=== PATIENT | female | born 1990 | race Caucasian/White ===

== ENCOUNTER 2019-04-16 11:09 | Emergency (ER) | payer MEDICAID ==
[2019-04-16] MEDS ORDERED: Sodium Chloride 0.9% 1,000 ML IV ONE (11:41)
[2019-04-16] MEDS ORDERED: Ondansetron 4 MG/2 ML SDV IVPUSH ONE (11:41)
[2019-04-16] MEDS ORDERED: diphenhydrAMINE 50 MG/ML SDV IVPUSH ONE (11:41)
[2019-04-16] MEDS ORDERED: Ketorolac 30 MG/ML SDV IVPUSH ONE (11:41)
[2019-04-16] MEDS ORDERED: Metoclopramide 10 MG/2 ML SDV IV ONE (11:41)
--- NOTE | 2019-04-16 11:50 | EDM.PDOC ---
ED HPI GENERAL MEDICAL PROBLEM - General Chief Complaint: Headache Stated Complaint: HEAD ACHE Time Seen by Provider: 04/16/19 11:37 Source of Information: Reports: Patient History Limitations: Reports: No Limitations - History of Present Illness INITIAL COMMENTS - FREE TEXT/NARRATIVE: HISTORY AND PHYSICAL: History of present illness: Patient is a 28 old female presents to the ED today with concern of headache that it started yesterday. Patient states her headache is a 9 out of 10 and she does not have a history of headaches and this is unusual for her. Patient states is behind her left eye and extends back around her head. Patient states she's had some nausea and 2 episodes of vomiting since onset of headache. Patient states she has taken a total of 400 mg of ibuprofen today and yesterday without relief of symptoms. Patient denies any head injury or trauma. Patient denies any health history. Patient has a Nexplanon implant for control. Patient denies fever, chills, chest pain, shortness of breath, or cough. Denies neck stiff ness, change in vision, syncope, or near syncope. Denies nausea, vomiting, abdominal pain, diarrhea, constipation, or dysuria. Has not noted any blood in urine or stool. Patient has been eating and drinking appropriately. Review of systems: As per history of present illness and below otherwise all systems reviewed and negative. Past medical history: As per history of present illness and as reviewed below otherwise noncontributory. Surgical history: As per history of present illness and as reviewed below otherwise noncontributory. Social history: See social history for further information Family history: As per history of present illness and as reviewed below otherwise noncontributory. Physical exam: General: Patient is alert, oriented, and in no acute distress. Patient sitting comfortably on exam table. HEENT: Atraumatic, normocephalic, pupils equal and reactive bilaterally, negative for conjunctival pallor or scleral icterus, mucous membranes moist, TMs normal bilaterally, throat clear, neck supple, nontender, trachea midline. No drooling or trismus noted. No meningeal signs. No hot potato voice noted. Lungs: Clear to auscultation, breath sounds equal bilaterally, chest nontender. Heart: S1S2, regular rate and rhythm without overt murmur Abdomen: Soft, nondistended, nontender. Negative for masses or hepatosplenomegaly. Negative for costovertebral tenderness. Pelvis: Stable nontender. Genitourinary: Deferred. Rectal: Deferred. Skin: Intact, warm, dry. No lesions or rashes noted. Nexplanon implant palpated in left biceps area. Extremities/Musculoskeletal : Atraumatic, negative for cords or calf pain. Neurovascular unremarkable.Negative Kernig and Brudzinski sign. Neuro: Awake, alert, oriented. Cranial nerves II through XII unremarkable. Cerebellum unremarkable. Motor and sensory unremarkable throughout. Exam nonfocal. Notes: Patient does note significant improvement of her headache with therapeutics today. Discussed the importance for follow-up with primary care provider. Voices understanding and is agreeable to plan of care. Denies any further questions or concerns at this time. Diagnostics: CBC CBC, CMP, UA, head CT Therapeutics: Saline, Toradol, Zofran, Reglan, Benadryl Prescription: None Impression: Headache, unspecified Plan: 1. Encourage small but frequent sips of fluid to prevent dehydration. 2. Follow-up with a primary care provider as discussed. You can alternate ibuprofen and Tylenol as directed for pain and discomfort. 3. Return to the ED as needed and as discussed. Definitive disposition and diagnosis as appropriate pending reevaluation and review of above. Left head Pain Score (Numeric/FACES): 9 - Related Data Allergies Allergy/AdvReac Type Severity Reaction Status Date / Time No Known Allergies Allergy Verified 04/16/19 11:18 Home Meds: Home Meds . 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: Musculoskeletal History: Reports: None Neurological History: Reports: None Psychiatric History: Reports: None Endocrine/Metabolic History: Reports: None Hematologic History: Reports: None Immunologic History: Reports: None Oncologic (Cancer) History: Reports: None Dermatologic History: Reports: None - Infectious Disease History Infectious Disease History: Reports: Other (See Below) Other Infectious Disease History: 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 - Past Surgical History Head Surgeries/Procedures: Reports: None HEENT Surgical History: Reports: None Cardiovascular Surgical History: Reports: None Respiratory Surgical History: Reports: None GI Surgical History: Reports: None Female Surgical History: Reports: None Endocrine Surgical History: Reports: None Neurological Surgical History: Reports: None Musculoskeletal Surgical History: Reports: None Oncologic Surgical History: Reports: None Dermatological Surgical History: Reports: None Social & Family History - Family History Family Medical History: Noncontributory - Tobacco Use Smoking Status *Q: Current Every Day Smoker Years of Tobacco use: 12 Packs/Tins Daily: 0.5 - Caffeine Use Caffeine Use: Reports: Soda - Recreational Drug Use Recreational Drug Use: Yes Recreational Drug Type: Reports: Marijuana/Hashish Recreational Drug Use Frequency: Daily ED ROS GENERAL - Review of Systems Review Of Systems: ROS reveals no pertinent complaints other than HPI. ED EXAM, GENERAL - Physical Exam Exam: See Below (See dictation) Course - Vital Signs Last Recorded V/S: Last Vital Signs Temp 36.3 C 04/16/19 11:17 Pulse 91 04/16/19 11:17 Resp 18 04/16/19 11:17 BP 150/101 H 04/16/19 11:17 Pulse Ox 96 04/16/19 11:17 - Orders/Labs/Meds Labs: Laboratory Tests 04/16/19 04/16/19 04/16/19 Range/Units 11:30 11:30 11:45 WBC 9.71 (4.0-11.0) K/uL RBC 4.95 (4.30-5.90) M/uL Hgb 14.5 (12.0-16.0) g/dL Hct 42.7 (36.0-46.0) % MCV 86.3 (80.0-98.0) fL MCH 29.3 (27.0-32.0) pg MCHC 34.0 (31.0-37.0) g/dL RDW Std Deviation 43.3 (28.0-62.0) fl RDW Coeff of Batool 14 (11.0-15.0) % Plt Count 252 (150-400) K/uL MPV 10.00 (7.40-12.00) fL Neut % (Auto) 50.3 (48.0-80.0) % Lymph % (Auto) 44.4 H (16.0-40.0) % [place] % (Auto) 3.8 (0.0-15.0) % Eos % (Auto) 1.3 (0.0-7.0) % Baso % (Auto) 0.2 (0.0-1.5) % Neut # (Auto) 4.9 (1.4-5.7) K/uL Lymph # (Auto) 4.3 H (0.6-2.4) K/uL [place] # (Auto) 0.4 (0.0-0.8) K/uL Eos # (Auto) 0.1 (0.0-0.7) K/uL Baso # (Auto) 0.0 (0.0-0.1) K/uL Nucleated RBC % 0.0 /100WBC Nucleated RBCs # 0 K/uL Sodium 145 (136-145) mmol/L Potassium 4.0 (3.5-5.1) mmol/L Chloride 108 H (98-107) mmol/L Carbon Dioxide 25.6 (21.0-32.0) mmol/L BUN 11 (7.0-18.0) mg/dL Creatinine 0.7 (0.6-1.0) mg/dL Est Cr Clr Drug Dosing 109.59 mL/min Estimated GFR (MDRD) > 60.0 ml/min Glucose 92 (74-106) mg/dL Calcium 9.0 (8.5-10.1) mg/dL Total Bilirubin 0.2 (0.2-1.0) mg/dL AST 11 L (15-37) IU/L ALT 15 (14-63) IU/L Alkaline Phosphatase 70 (46-116) U/L Total Protein 7.0 (6.4-8.2) g/dL Albumin 3.5 (3.4-5.0) g/dL Globulin 3.5 (2.6-4.0) g/dL Albumin/Globulin Ratio 1.0 (0.9-1.6) Urine Color YELLOW Urine Appearance CLEAR Urine pH 6.5 (5.0-8.0) Ur Specific [place] 1.015 (1.001-1.035) Urine Protein NEGATIVE (NEGATIVE) mg/dL Urine Glucose (UA) NEGATIVE (NEGATIVE) mg/dL Urine Ketones NEGATIVE (NEGATIVE) mg/dL Urine Occult Blood SMALL H (NEGATIVE) Urine Nitrite NEGATIVE (NEGATIVE) Urine Bilirubin NEGATIVE (NEGATIVE) Urine Urobilinogen 0.2 (<2.0) EU/dL Ur Leukocyte Esterase NEGATIVE (NEGATIVE) Urine RBC 0-1 (0-2/HPF) Urine WBC 0-1 (0-5/HPF) Ur Epithelial Cells RARE (NONE-FEW) Urine Bacteria RARE (NEGATIVE) Meds: Medications Discontinued Medications Generic Name Dose Route Start Last Admin Trade Name Linda PRN Reason Stop Dose Admin Diphenhydramine HCl 25 mg 04/16/19 11:41 04/16/19 12:04 Benadryl IVPUSH 04/16/19 11:42 25 mg ONETIME ONE Administration Sodium Chloride 1,000 mls @ 999 mls/hr 04/16/19 11:41 04/16/19 12:02 Normal Saline IV 04/16/19 12:41 999 mls/hr STAT ONE Administration Ketorolac Tromethamine 30 mg 04/16/19 11:41 04/16/19 12:03 Toradol IVPUSH 04/16/19 11:42 30 mg ONETIME ONE Administration Metoclopramide HCl 10 mg 04/16/19 11:41 04/16/19 12:04 Reglan IV 04/16/19 11:42 10 mg ONETIME ONE Administration Ondansetron HCl 4 mg 04/16/19 11:41 04/16/19 12:03 Zofran IVPUSH 04/16/19 11:42 4 mg ONETIME ONE Administration Departure - Departure Time of Disposition: 13:08 Disposition: Home, Self-Care 01 Clinical Impression: Headache Qualifiers: Headache type: unspecified Headache chronicity pattern: acute headache Intractability: not intractable Qualified Code(s): R51 - Headache - Discharge Information Referrals: PCP,Unknown [Primary Care Provider] - Forms: ED Department Discharge Additional Instructions: The following information is given to patients seen in the emergency department who are being discharged to home. This information is to outline your options for follow-up care. We provide all patients seen in our emergency department with a follow-up referral. The need for follow-up, as well as the timing and circumstances, are variable depending upon the specifics of your emergency department visit. If you don't have a primary care physician on staff, we will provide you with a referral. We always advise you to contact your personal physician following an emergency department visit to inform them of the circumstance of the visit and for follow-up with them and/or the need for any referrals to a consulting specialist. The emergency department will also refer you to a specialist when appropriate. This referral assures that you have the opportunity for follow-up care with a specialist. All of these measure are taken in an effort to provide you with optimal care, which includes your follow-up. Under all circumstances we always encourage you to contact your private physician who remains a resource for coordinating your care. When calling for follow-up care, please make the office aware that this follow-up is from your recent emergency room visit. If for any reason you are refused follow-up, please contact the [facility] Emergency Department at and asked to speak to the emergency department charge nurse. [facility] [address] [place] [id number] [facility] [address] [place] [id number] 1. Encourage small but frequent sips of fluid to prevent dehydration. 2. Follow-up with a primary care provider as discussed. You can alternate ibuprofen and Tylenol as directed for pain and discomfort. 3. Return to the ED as needed and as discussed.
[2019-04-16 11:59] LABS: CHLORIDE,CL 108 mmol/L (98-107); SODIUM,NA 145 mmol/L (136-145)
--- NOTE | 2019-04-16 13:06 | CT ---
INDICATION: Headache. Comparison: None. TECHNIQUE: CT head without intravenous contrast; coronal and sagittal reformats. FINDINGS: No intracranial hemorrhage. No mass lesions. No evidence of shift of the midline structures. The calvarium is unremarkable. The ventricular system, the subarachnoid cisterns and the cerebral sulci are unremarkable. IMPRESSION: Negative unenhanced head CT. Please note that all CT scans at this facility use dose modulation, iterative reconstruction, and/or weight-based dosing when appropriate to reduce radiation dose to as low as reasonably achievable. Dictated by Andrew Jacobo MD @ Apr 16 2019 12:57PM Signed by Dr. Andrew Jacobo @ Apr 16 2019 1:04PM
== END 2019-04-16 13:20 | disposition home or self-care (01) ==
LOC: MW.ED 11:09
DX: R51 Headache (principal); F17.210 Nicotine dependence, cigarettes, uncomplicated
CPT/HCPCS: 36415; 70450; 80053; 81001; 85025; 96361; 96374; 96375; 99284; J1200; J1885; J2405; J2765; J7040

== ENCOUNTER 2019-08-26 08:21 | Emergency (ER) | payer MEDICAID ==
--- NOTE | 2019-08-26 08:37 | EDM.PDOC ---
ED HPI GENERAL MEDICAL PROBLEM - General Chief Complaint: Gastrointestinal Problem Stated Complaint: BLOOD IN VOMIT Time Seen by Provider: 08/26/19 08:36 Source of Information: Reports: Patient History Limitations: Reports: No Limitations - History of Present Illness INITIAL COMMENTS - FREE TEXT/NARRATIVE: Patient has a 29-year-old female who is complaining of epigastric abdominal pain and vomiting in the morning that is been going on for several months. Patient has taken a home test which is negative and states her symptoms are worse in the morning. She has been vomiting every day once or twice in the morning and the rest of the day is fine. She denies any bloody or tarry looking stools. Patient noted there is a small amount possibly tablespoon worth of blood in her emesis today. She has not had similar symptoms before and denies any coffee-ground type emesis. She has not followed up with anybody to work-up her abdominal pain symptoms. And is not having any pain currently and usually does not have pain with above symptoms. She denies any fever or shaking chills or any dysuria. Drink alcohol on a regular basis. Onset: Today Location: Reports: Abdomen Severity: Mild Improves with: Reports: None Worsens with: Reports: None Associated Symptoms: Reports: No Other Symptoms Middle Abdomen Pain Score (Numeric/FACES): 7 - Related Data Allergies Allergy/AdvReac Type Severity Reaction Status Date / Time No Known Allergies Allergy Verified 08/26/19 08:36 Home Meds: Home Meds . 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: Musculoskeletal History: Reports: None Neurological History: Reports: None Psychiatric History: Reports: None Endocrine/Metabolic History: Reports: None Hematologic History: Reports: None Immunologic History: Reports: None Oncologic (Cancer) History: Reports: None Dermatologic History: Reports: None - Infectious Disease History Infectious Disease History: Reports: Other (See Below) Other Infectious Disease History: 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 - Past Surgical History Head Surgeries/Procedures: Reports: None HEENT Surgical History: Reports: None Cardiovascular Surgical History: Reports: None Respiratory Surgical History: Reports: None GI Surgical History: Reports: None Female Surgical History: Reports: None Endocrine Surgical History: Reports: None Neurological Surgical History: Reports: None Musculoskeletal Surgical History: Reports: None Oncologic Surgical History: Reports: None Dermatological Surgical History: Reports: None Social & Family History - Family History Family Medical History: Noncontributory - Caffeine Use Caffeine Use: Reports: Soda ED ROS GENERAL - Review of Systems Review Of Systems: See Below Constitutional: Reports: No Symptoms. Denies: Decreased Appetite Respiratory: Reports: No Symptoms Cardiovascular: Reports: No Symptoms Endocrine: Reports: No Symptoms GI/Abdominal: Reports: Abdominal Pain, Hematochezia. Denies: Anorexia, Bloody Stool, Melena, Mucous in Stool : Reports: No Symptoms Musculoskeletal: Reports: No Symptoms Skin: Reports: No Symptoms Neurological: Reports: No Symptoms Psychiatric: Reports: No Symptoms ED EXAM, GI/ABD - Physical Exam Exam: See Below Exam Limited By: No Limitations General Appearance: Alert, No Apparent Distress Head: Atraumatic, Normocephalic Neck: Normal Inspection Respiratory/Chest: No Respiratory Distress, Lungs Clear GI/Abdominal Exam: Normal Bowel Sounds, No Distention, Tender Back Exam: Normal Inspection Extremities: Normal Inspection Neurological: Alert Psychiatric: Normal Affect Course - Vital Signs Last Recorded V/S: Last Vital Signs Temp 36.2 C 08/26/19 08:33 Pulse 90 08/26/19 08:33 Resp 16 08/26/19 08:33 BP 186/68 H 08/26/19 08:33 Pulse Ox 98 08/26/19 08:33 - Orders/Labs/Meds Labs: Laboratory Tests 08/26/19 08/26/19 08/26/19 Range/Units 08:55 08:55 09:08 WBC 10.16 (4.0-11.0) K/uL RBC 4.94 (4.30-5.90) M/uL Hgb 14.4 (12.0-16.0) g/dL Hct 42.6 (36.0-46.0) % MCV 86.2 (80.0-98.0) fL MCH 29.1 (27.0-32.0) pg MCHC 33.8 (31.0-37.0) g/dL RDW Std Deviation 43.6 (28.0-62.0) fl RDW Coeff of Batool 14 (11.0-15.0) % Plt Count 249 (150-400) K/uL MPV 9.90 (7.40-12.00) fL Neut % (Auto) 58.8 (48.0-80.0) % Lymph % (Auto) 35.5 (16.0-40.0) % [place] % (Auto) 3.9 (0.0-15.0) % Eos % (Auto) 1.7 (0.0-7.0) % Baso % (Auto) 0.1 (0.0-1.5) % Neut # (Auto) 6.0 H (1.4-5.7) K/uL Lymph # (Auto) 3.6 H (0.6-2.4) K/uL [place] # (Auto) 0.4 (0.0-0.8) K/uL Eos # (Auto) 0.2 (0.0-0.7) K/uL Baso # (Auto) 0.0 (0.0-0.1) K/uL Nucleated RBC % 0.0 /100WBC Nucleated RBCs # 0 K/uL Sodium 141 (136-145) mmol/L Potassium 4.4 (3.5-5.1) mmol/L Chloride 107 (98-107) mmol/L Carbon Dioxide 26.9 (21.0-32.0) mmol/L BUN 13 (7.0-18.0) mg/dL Creatinine 0.8 (0.6-1.0) mg/dL Est Cr Clr Drug Dosing 95.05 mL/min Estimated GFR (MDRD) > 60.0 ml/min Glucose 94 (74-106) mg/dL Calcium 8.6 (8.5-10.1) mg/dL Total Bilirubin 0.2 (0.2-1.0) mg/dL AST 11 L (15-37) IU/L ALT 18 (14-63) IU/L Alkaline Phosphatase 74 (46-116) U/L Total Protein 7.1 (6.4-8.2) g/dL Albumin 3.8 (3.4-5.0) g/dL Globulin 3.3 (2.6-4.0) g/dL Albumin/Globulin Ratio 1.2 (0.9-1.6) Lipase 92 (73-393) U/L Urine HCG, Qual NEGATIVE (NEGATIVE) Meds: Medications Discontinued Medications Generic Name Dose Route Start Last Admin Trade Name Linda PRN Reason Stop Dose Admin Famotidine 20 mg 08/26/19 08:45 08/26/19 08:57 Pepcid PO 08/26/19 08:46 20 mg ONETIME ONE Administration - Re-Assessments/Exams Free Text/Narrative Re-Assessment/Exam: 08/26/19 10:08 Patient's lab work is normal. I have reassured her I am not alarmed by her hematochezia since it is a very small amount. I am recommending she follow-up with general surgeon for possible EGD. Recommend a low-fat diet with small meals only and [id number] acid blocking medicine and to stay away from alcohol until she is cleared by her PCP or general surgeon. She can return to emergency department if bleeding increases or she is feeling worse. She is also stay away from any NSAID Departure - Departure Time of Disposition: 10:09 Disposition: Home, Self-Care 01 Condition: Good Clinical Impression: Peptic ulcer - Discharge Information Instructions: Peptic Ulcer, [id number], Nausea and Vomiting, Adult, Easy-to- Read Referrals: PCP,None [Primary Care Provider] - Forms: ED Department Discharge Additional Instructions: The following information is given to patients seen in the emergency department who are being discharged to home. This information is to outline your options for follow-up care. We provide all patients seen in our emergency department with a follow-up referral. The need for follow-up, as well as the timing and circumstances, are variable depending upon the specifics of your emergency department visit. If you don't have a primary care physician on staff, we will provide you with a referral. We always advise you to contact your personal physician following an emergency department visit to inform them of the circumstance of the visit and for follow-up with them and/or the need for any referrals to a consulting specialist. The emergency department will also refer you to a specialist when appropriate. This referral assures that you have the opportunity for follow-up care with a specialist. All of these measure are taken in an effort to provide you with optimal care, which includes your follow-up. Under all circumstances we always encourage you to contact your private physician who remains a resource for coordinating your care. When calling for follow-up care, please make the office aware that this follow-up is from your recent emergency room visit. If for any reason you are refused follow-up, please contact the [facility] Emergency Department at and asked to speak to the emergency department charge nurse. Care Plan Goals: Low-fat diet with small meals. Avoid NSAIDs or alcohol. Follow-up with general surgeon for possible upper scope. Return to emergency department if worse. [id number] Prilosec for the next 4 weeks. Zofran if needed. Sepsis Event Note - Evaluation Sepsis Screening Result: No Definite Risk - Focused Exam Vital Signs: Vital Signs Temp Pulse Resp BP Pulse Ox 08/26/19 08:33 36.2 C 90 16 186/68 H 98 Date Exam was Performed: 08/26/19 Time Exam was Performed: 09:58
[2019-08-26] MEDS ORDERED: Famotidine 20 MG Tab PO ONE (08:45)
[2019-08-26 09:33] LABS: BLOOD UREA NITROGEN,BUN 13 mg/dL (7.0-18.0); CARBON DIOXIDE,CO2 26.9 mmol/L (21.0-32.0); CHLORIDE,CL 107 mmol/L (98-107); GLUCOSE RANDOM 94 mg/dL (74-106); LIPASE 92 U/L (73-393); POTASSIUM,K 4.4 mmol/L (3.5-5.1); SODIUM,NA 141 mmol/L (136-145)
== END 2019-08-26 10:23 | disposition home or self-care (01) ==
LOC: MW.ED 08:21
DX: K27.9 Peptic ulcer, site unspecified, unspecified as acute or chronic, without hemorrhage or perforation (principal)
CPT/HCPCS: 36415; 80053; 81025; 83690; 85025; 99284; A9270

== ENCOUNTER 2019-09-08 06:31 | Day surgery (SDC) | payer MEDICAID ==
[~2019-09-08 06:31] MED LIST: Lactated Ringers 1,000 ML IV SCH
[2019-09-08] MEDS ORDERED: Ondansetron 4 MG/2 ML SDV ONE (07:18)
[2019-09-08] MEDS ORDERED: fentaNYL 100 MCG/2 ML SDV ONE (07:19)
[2019-09-08] MEDS ORDERED: Propofol 200 MG/20 ML SDV ONE (07:19)
[2019-09-08] MEDS ORDERED: Midazolam 1 MG/ML 2 ML SDV ONE (07:20)
--- NOTE | 2019-09-08 07:29 | PCM.PREANE ---
Preanesthetic Assessment - Anesthesia/Transfusion/Family Hx Anesthesia History: Prior Anesthesia Without Reaction Family History of Anesthesia Reaction: No Transfusion History: No Prior Transfusion(s) - Review of Systems General: No Symptoms Pulmonary: No Symptoms Cardiovascular: No Symptoms Neurological: No Symptoms Other: Reports: None - Physical Assessment NPO Status Date: 09/07/19 Vital Signs: Last Vital Signs Temp 97.9 F 09/08/19 07:16 Pulse 79 09/08/19 07:16 Resp 16 09/08/19 07:16 BP 136/84 09/08/19 07:16 Pulse Ox 97 09/08/19 07:16 Height: 5 ft 5 in Weight: 109.769 kg ASA Class: 2 Mental Status: Alert & Oriented x3 Airway Class: Mallampati = 2 Dentition: Reports: Normal Dentition ROM/Head Extension: Full Lungs: Clear to Auscultation, Normal Respiratory Effort Cardiovascular: Regular Rate, Regular Rhythm - Lab Values: Laboratory Last Values Urine HCG, Qual NEGATIVE (NEGATIVE) 09/08/19 06:45 - Allergies Allergies/Adverse Reactions: Allergies Allergy/AdvReac Type Severity Reaction Status Date / Time No Known Allergies Allergy Verified 09/03/19 11:39 - Blood Blood Available: No - Anesthesia Plan Pre-Op Medication Ordered: None - Acknowledgements Anesthesia Type Planned: General Anesthesia Pt an Appropriate Candidate for the Planned Anesthesia: Yes Alternatives and Risks of Anesthesia Discussed w Pt/Guardian: Yes Pt/Guardian Understands and Agrees with Anesthesia Plan: Yes Additional Comments: anes prob list: htn, smoker, BMI=40 PLAN: tiva PreAnesthesia Questionnaire HEENT History: Reports: Other (See Below) Other HEENT History: wears glasses Cardiovascular History: Reports: None Respiratory History: Reports: None Gastrointestinal History: Reports: GERD, GI Bleed Genitourinary History: Reports: Renal Calculus Other Genitourinary History: passed kidney stone 1 year ago [employer]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: Musculoskeletal History: Reports: Fracture Other Musculoskeletal History: hx of fx arm Neurological History: Reports: Migraines Other Neuro History: hx of chronic migraines- no medications Psychiatric History: Reports: None Endocrine/Metabolic History: Reports: Obesity/BMI 30+ Hematologic History: Reports: None Immunologic History: Reports: None Oncologic (Cancer) History: Reports: None Dermatologic History: Reports: None - Infectious Disease History Infectious Disease History: Reports: Other (See Below) Other Infectious Disease History: 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 [No Known Home Meds] 09/03/19 [History] - CURRENT (IN HOUSE) MEDS Current Meds: Current Medications Lactated Ringer's (Ringers, Lactated) 1,000 mls @ 125 mls/hr IV ASDIRECTED KELLY Last Admin: 09/08/19 07:19 Dose: 125 mls/hr Discontinued Medications Fentanyl (Sublimaze) Confirm Administered Dose 100 mcg .ROUTE .STK-MED ONE Stop: 09/08/19 07:20 Lidocaine HCl (Xylocaine-Mpf 1%) Confirm Administered Dose 10 ml .ROUTE .STK- MED ONE Stop: 09/08/19 07:19 Midazolam HCl (Versed 1 Mg/Ml) Confirm Administered Dose 2 mg .ROUTE .STK-MED ONE Stop: 09/08/19 07:21 Ondansetron HCl (Zofran) Confirm Administered Dose 4 mg .ROUTE .STK-MED ONE Stop: 09/08/19 07:19 Propofol (Diprivan 20 Ml) Confirm Administered Dose 400 mg .ROUTE .STK-MED ONE Stop: 09/08/19 07:20
--- NOTE | 2019-09-08 08:33 | PCM.POSTAN ---
POST ANESTHESIA ASSESSMENT - MENTAL STATUS Mental Status: Alert - VITAL SIGNS Vital Signs: Last Vital Signs Temp 36.6 C 09/08/19 07:16 Pulse 79 09/08/19 07:16 Resp 16 09/08/19 07:16 BP 136/84 09/08/19 07:16 Pulse Ox 97 09/08/19 07:16 - RESPIRATORY Respiratory Status: Respiratory Rate WNL - CARDIOVASCULAR CV Status: Pulse Rate WNL - GASTROINTESTINAL GI Status: No Symptoms - PAIN Pain Score: 1 (Cramps) - POST OP HYDRATION Hydration Status: Adequate & Stable - OBSERVATIONS Free Text/Narrative:: Doing well. Ready for transfer.
--- NOTE | 2019-09-08 08:41 | PCM.OPNOTE ---
- General Post-Op/Procedure Note Date of Surgery/Procedure: 09/08/19 Operative Procedure(s): egd w bx. colonoscopy w bx Findings: see dict [id number] Pre Op Diagnosis: BRBPR Post-Op Diagnosis: Same Anesthesia Technique: Moderate Sedation Primary Surgeon: Dheeraj aPyton Pathology: egd bx colon random bx Complications: None Condition: Good
--- NOTE | 2019-09-08 10:18 | PCM48HPAN ---
Post Anesthesia Note - EVALUATION WITHIN 48HRS OF ANESTHETIC Vital Signs in Normal Range: Yes Patient Participated in Evaluation: Yes Respiratory Function Stable: Yes Airway Patent: Yes Cardiovascular Function Stable: Yes Hydration Status Stable: Yes Pain Control Satisfactory: Yes Nausea and Vomiting Control Satisfactory: Yes Mental Status Recovered: Yes Vital Signs: Last Vital Signs Temp 97.9 F 09/08/19 07:16 Pulse 76 09/08/19 08:41 Resp 16 09/08/19 08:41 BP 115/61 09/08/19 08:41 Pulse Ox 96 09/08/19 08:41
--- NOTE | 2019-09-08 14:33 | OR ---
SURGEON: Dheeraj Payotn MD DATE OF PROCEDURE: 09/08/2019 PREOPERATIVE DIAGNOSES: Bright red blood per rectum and abdominal pain. POSTOPERATIVE DIAGNOSES: Esophagogastroduodenoscopy diagnosis is gastroesophageal reflux disease and colonoscopy diagnosis is internal hemorrhoids. PROCEDURE PERFORMED: Esophagogastroduodenoscopy with biopsy and colonoscopy with biopsy. DESCRIPTION OF PROCEDURE: EGD: The patient was taken to the endoscopy room, and with the CATTLE FARMER, Diprivan was administered. A well-lubricated EGD scope was gently inserted through the oropharynx, down the esophagus, passing through the gastroesophageal junction, into the stomach. The mucosa was examined upon the passage. Any etiology will be noted. Once in the stomach, we continued to advance to the distal antrum, passed through the pylorus into the second portion of the duodenum. Again, the mucosa was examined for any abnormality and etiology. The scope was then retrieved back to the stomach and then retroflexed to look at the fundus of the stomach. If a biopsy was indicated, we will biopsy the antrum, body, and gastroesophageal junction. The air will be sucked out while the scope is retrieved to reduce the patient's discomfort. The patient tolerated the procedure well. There were no intraoperative complications. Dr. Payton was present through the whole procedure. Prior to surgery, a time-out had been called, the patient identified, procedure identified and antibiotic administered. The patient was taken to the endoscopy room. A time out was called, patient identified, and procedure identified. Diprivan was then administrated. Patient went from awake to sleep, hearing doctor talking or door closing is normal. Perineum inspection and digital examination were then performed. A well- lubricated colonoscope was gently inserted through the rectum, advanced past the rectosigmoid junction, the descending colon, splenic flexure, transverse colon, hepatic flexure, ascending colon, arrived to the cecum. Cecum was identified as dictated in the finding. Then the scope was carefully withdrawn while attention was paid to the mucosal surface for any abnormality. Air will be sucked out during the scope withdrawal. At the rectum, retroflexed to examine any rectal diseases, fistula or hemorrhoids. During mucosal examination, abnormality or polyp was noted; picture taken and biopsy performed. Patient tolerated procedure well. There were no intraoperative complications, and Dr. Payton was present throughout the whole procedure. FINDINGS: EGD findings: 1. The patient is easily sedated with CATTLE FARMER and Diprivan, the patient is soundly snoring. 2. Oropharynx and proximal esophagus are free of disease, infection, inflammation, or stricture. Distal esophagus at GE junction at 40 shows mild salmon-colored change consistent with acid reflux. Stomach rugae are normal in appearance. Antrum is completely normal and duodenum is grossly normal. The scope retrieved back to the stomach, retroflexed to look at the fundus of stomach, and there is no hiatal hernia. Biopsy done at antrum, body, GE junction at 40 and sucked out the gas while scope pulling out. During the whole study, there is no bile, no food particle, no blood, no ulcer observed. Scope withdrawal while sucking out air. Colonoscopy findings: 1. The patient is easily sedated with CATTLE FARMER and Diprivan, the patient is soundly snoring. 2. Bowel prep is left to be desirable. Large amount of liquid stool, opaque, and makes the study a compromised study and requiring continuous irrigation. There is no semi-formed stool. 3. The patient's colon was rather straightforward. Cecum indicated by ileocecal fold, one-to-one indentation, and appendiceal orifice. ScopeGuide is pointing south. Light emittance is not observed. Mucosa examined upon scope pulling out and with constant irrigation and again the study is compromised because there is quite a lot of liquid stool. The patient does not have diverticulosis, polyp, mass, growth, inflammation, stricture, ulceration, AV malformation, none of those. No blood. Stool is yellow. No black tarry stool. The patient has internal hemorrhoids, mild, and external hemorrhoids, mild. The patient will benefit from repeat colonoscopy in 10 years from today or if clinically indicated otherwise. As always thank you for the kind referral. RIP / BRAD /[id number]
== END 2019-09-08 09:15 | disposition home or self-care (01) ==
LOC: MW.SDS 06:31
PROVIDERS: ATTEND Surgery
DX: K62.5 Hemorrhage of anus and rectum (principal); K21.9 Gastro-esophageal reflux disease without esophagitis; K64.8 Other hemorrhoids; K29.50 Unspecified chronic gastritis without bleeding; K64.4 Residual hemorrhoidal skin tags; I10 Essential (primary) hypertension; G43.909 Migraine, unspecified, not intractable, without status migrainosus; F17.210 Nicotine dependence, cigarettes, uncomplicated; E66.9 Obesity, unspecified; Z68.41 Body mass index [BMI] 40.0-44.9, adult
CPT/HCPCS: 43239; 45380; 81025; J2001; J2250; J2405; J2704; J3010; J7120; 00813; 88305; 88312

== ENCOUNTER 2020-03-11 08:36 | Emergency (ER) | payer MEDICAID, OTHER ==
[2020-03-11] MEDS ORDERED: Ondansetron 4 MG Tab.DIS PO ONE (09:02)
--- NOTE | 2020-03-11 10:25 | EDM.PDOC ---
ED HPI GENERAL MEDICAL PROBLEM - General Chief Complaint: Gastrointestinal Problem Stated Complaint: VOMITING Time Seen by Provider: 03/11/20 08:50 - History of Present Illness INITIAL COMMENTS - FREE TEXT/NARRATIVE: History of present illness: Patient presents with 3 days of nausea and vomiting and some diarrhea no abdominal pain she denies any fever chills she has had a sore throat with laryngitis though for the past 2 days and she is curious what is going on she denies any other complaints or problems no obvious exposures no medical problems no allergies nothing makes it better or worse Review of systems: As per history of present illness and below otherwise all systems reviewed and negative. Past medical history: As per history of present illness and as reviewed below otherwise noncontributory. Surgical history: As per history of present illness and as reviewed below otherwise noncontributory. Social history: No reported history of drug or alcohol abuse. Family history: As per history of present illness and as reviewed below otherwise noncontributory. Physical exam: HEENT: Atraumatic, normocephalic, pupils reactive, negative for conjunctival pallor or scleral icterus, mucous membranes moist, throat clear, neck supple, nontender, trachea midline. Lungs: Clear to auscultation, breath sounds equal bilaterally, chest nontender. Heart: S1S2, regular, negative for clicks, rubs, or JVD. Abdomen: Soft, nondistended, nontender. Negative for masses or hepatosplenomegaly. Negative for costovertebral tenderness. Pelvis: Stable nontender. Genitourinary: Deferred. Rectal: Deferred. Extremities: Atraumatic, negative for cords or calf pain. Neurovascular unremarkable. Neuro: Awake, alert, oriented. Cranial nerves II through XII unremarkable. Cerebellum unremarkable. Motor and sensory unremarkable throughout. Exam nonfocal. Diagnostics: [] Therapeutics: [] Impression: Viral syndrome [] Plan: Patient would like to be tested for COVID I will give her some oral Zofran. And reassess [] Definitive disposition and diagnosis as appropriate pending reevaluation and review of above. Throat Pain Score (Numeric/FACES): 1 - Related Data Allergies Allergy/AdvReac Type Severity Reaction Status Date / Time No Known Allergies Allergy Verified 09/03/19 11:39 Home Meds: Home Meds Ondansetron [Zofran ODT] 4 mg PO Q6H PRN 5 Days #12 tab.dis 03/11/20 [Rx] Past Medical History HEENT History: Reports: Other (See Below) Other HEENT History: wears glasses Cardiovascular History: Reports: None, Hypertension Respiratory History: Reports: None Gastrointestinal History: Reports: GERD, GI Bleed Genitourinary History: Reports: Renal Calculus Other Genitourinary History: passed kidney stone 1 year ago 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: Musculoskeletal History: Reports: Fracture Other Musculoskeletal History: hx of fx arm Neurological History: Reports: Migraines Other Neuro History: hx of chronic migraines- no medications Psychiatric History: Reports: None Endocrine/Metabolic History: Reports: Obesity/BMI 30+ Hematologic History: Reports: None Immunologic History: Reports: None Oncologic (Cancer) History: Reports: None Dermatologic History: Reports: None - Infectious Disease History Infectious Disease History: Reports: None Other Infectious Disease History: 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 - Past Surgical History Head Surgeries/Procedures: Reports: None GI Surgical History: Reports: Colonoscopy Social & Family History - Family History Family Medical History: Noncontributory - Tobacco Use Smoking Status *Q: Current Every Day Smoker Years of Tobacco use: 10 Packs/Tins Daily: 0.5 Used Tobacco, but Quit: No Second Hand Smoke Exposure: Yes - Caffeine Use Caffeine Use: Reports: Coffee - Recreational Drug Use Recreational Drug Use: Yes Drug Use in Last 12 Months: Yes Recreational Drug Type: Reports: Marijuana/Hashish Recreational Drug Use Frequency: Daily ED ROS GENERAL - Review of Systems Review Of Systems: See Below ED EXAM, GENERAL - Physical Exam Exam: See Below Course - Vital Signs Text/Narrative:: COVID is negative she will be written some Zofran she is encouraged to self isolate until she is well drink plenty of fluids only return to the ED if she is experiencing respiratory distress Last Recorded V/S: Last Vital Signs Temp 36.2 C 03/11/20 08:42 Pulse 88 03/11/20 08:42 Resp 20 03/11/20 08:42 BP 143/91 H 03/11/20 08:42 Pulse Ox 98 03/11/20 08:42 - Orders/Labs/Meds Labs: Laboratory Tests 03/11/20 Range/Units 09:27 COVID-19 ([facility]) NEGATIVE (NEGATIVE) Meds: Medications Discontinued Medications Generic Name Dose Route Start Last Admin Trade Name Freq PRN Reason Stop Dose Admin Ondansetron HCl 4 mg 03/11/20 09:02 03/11/20 09:28 Zofran Odt PO 03/11/20 09:03 4 mg ONETIME ONE Administration Departure - Departure Time of Disposition: 10:23 Disposition: Home, Self-Care 01 Condition: Good Clinical Impression: Vomiting, Viral syndrome - Discharge Information *PRESCRIPTION DRUG MONITORING PROGRAM REVIEWED*: Not Applicable *COPY OF PRESCRIPTION DRUG MONITORING REPORT IN PATIENT ERIK: Not Applicable Instructions: Viral Respiratory Infection, [id number], Nausea and Vomiting, Adult Referrals: PCP,None [Primary Care Provider] - Additional Instructions: The following information is given to patients seen in the emergency department who are being discharged to home. This information is to outline your options for follow-up care. We provide all patients seen in our emergency department with a follow-up referral. The need for follow-up, as well as the timing and circumstances, are variable depending upon the specifics of your emergency department visit. If you don't have a primary care physician on staff, we will provide you with a referral. We always advise you to contact your personal physician following an emergency department visit to inform them of the circumstance of the visit and for follow-up with them and/or the need for any referrals to a consulting specialist. The emergency department will also refer you to a specialist when appropriate. This referral assures that you have the opportunity for follow-up care with a specialist. All of these measure are taken in an effort to provide you with optimal care, which includes your follow-up. Under all circumstances we always encourage you to contact your private physician who remains a resource for coordinating your care. When calling for follow-up care, please make the office aware that this follow-up is from your recent emergency room visit. If for any reason you are refused follow-up, please contact the [facility] Emergency Department at and asked to speak to the emergency department charge nurse. [facility] [address] [place] [address] [id number] [id number] Sepsis Event Note (ED) - Evaluation Sepsis Screening Result: No Definite Risk - Focused Exam Vital Signs: Vital Signs Temp Pulse Resp BP Pulse Ox 03/11/20 08:42 36.2 C 88 20 143/91 H 98
== END 2020-03-11 10:31 | disposition home or self-care (01) ==
LOC: MW.ED 08:36
DX: B34.9 Viral infection, unspecified (principal); Z20.828 Contact with and (suspected) exposure to other viral communicable diseases; I10 Essential (primary) hypertension; E66.9 Obesity, unspecified; F17.210 Nicotine dependence, cigarettes, uncomplicated; Z68.39 Body mass index [BMI] 39.0-39.9, adult
CPT/HCPCS: 87635; 99284; A9270; 99283; U0002

== ENCOUNTER 2020-11-08 07:29 | Day surgery (SDC) | payer MEDICAID ==
[~2020-11-08 07:29] MED LIST changes: +Glycopyrrolate 0.2 MG/ML SDV ONE; +Midazolam 1 MG/ML 2 ML SDV ONE; +Ondansetron 4 MG/2 ML SDV ONE; +Propofol 200 MG/20 ML SDV ONE; +fentaNYL 100 MCG/2 ML SDV ONE
--- NOTE | 2020-11-08 07:56 | PCM.PREANE ---
Preanesthetic Assessment - Anesthesia/Transfusion/Family Hx Anesthesia History: Prior Anesthesia Without Reaction Family History of Anesthesia Reaction: No Transfusion History: No Prior Transfusion(s) - Review of Systems General: No Symptoms Pulmonary: No Symptoms Cardiovascular: No Symptoms Gastrointestinal: No Symptoms Neurological: No Symptoms Other: Reports: None - Physical Assessment NPO Status Date: 11/07/20 NPO Status Time: 22:00 Height: 1.65 m Weight: 108.409 kg ASA Class: 2 Mental Status: Alert & Oriented x3 Airway Class: Mallampati = 2 Dentition: Reports: Broken Tooth/Teeth (LEFT LOWER MOLAR-CHIPPED TOOTH) Thyro-Mental Finger Breadths: 3 Mouth Opening Finger Breadths: 3 ROM/Head Extension: Full Lungs: Clear to Auscultation, Normal Respiratory Effort Cardiovascular: Regular Rate, Regular Rhythm - Allergies Allergies/Adverse Reactions: Allergies Allergy/AdvReac Type Severity Reaction Status Date / Time No Known Allergies Allergy Verified 11/02/20 09:24 - Acknowledgements Anesthesia Type Planned: MAC (The patient understands and agrees with the anesthetic plan. All questions answered. Consent signed. ) Pt an Appropriate Candidate for the Planned Anesthesia: Yes Alternatives and Risks of Anesthesia Discussed w Pt/Guardian: Yes Pt/Guardian Understands and Agrees with Anesthesia Plan: Yes PreAnesthesia Questionnaire HEENT History: Reports: Other (See Below) Other HEENT History: wears glasses Cardiovascular History: Reports: Other (See Below) (white coat HTN. history of htn during .) Respiratory History: Reports: TB Other Respiratory History: hx of TB treated. 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 Genitourinary History: Reports: None Musculoskeletal History: Reports: Fracture Other Musculoskeletal History: hx of fx arm Neurological History: Reports: Migraines (took medications yesterday for Head ache.) Psychiatric History: Reports: None Endocrine/Metabolic History: Reports: Obesity/BMI 30+ (BMI=39.8) Hematologic History: Reports: None Immunologic History: Reports: None Oncologic (Cancer) History: Reports: None Dermatologic History: Reports: None - Infectious Disease History Infectious Disease History: Reports: TB, Other (See Below) (COVID NEGATIVE(october 2020)) Other Infectious Disease History: 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-treated - Past Surgical History Head Surgeries/Procedures: Reports: None HEENT Surgical History: Reports: None Cardiovascular Surgical History: Reports: None Respiratory Surgical History: Reports: None GI Surgical History: Reports: Colonoscopy, EGD Female Surgical History: Reports: None Endocrine Surgical History: Reports: None Neurological Surgical History: Reports: None Musculoskeletal Surgical History: Reports: None Oncologic Surgical History: Reports: None Dermatological Surgical History: Reports: None - History Comment History Comment: etoh "2x a year" - SUBSTANCE USE Tobacco Use Status *Q: Current Every Day Tobacco User (for 10 years.) Tobacco Use Within Last Twelve Months: Cigarettes Second Hand Smoke Exposure: No Recreational Drug Type: Reports: Marijuana/Hashish ("4-5 days ago") Recreational Drug Last Use: 10/31/20 - HOME MEDS Home Medications: Home Meds Omeprazole 20 mg PO DAILY 11/02/20 [History] Ondansetron [Zofran ODT] 4 mg SL ASDIRECTED PRN 11/02/20 [History] Rizatriptan Benzoate [Rizatriptan] 10 mg SL ASDIRECTED PRN 11/02/20 [History]
--- NOTE | 2020-11-08 08:58 | PCM.OPNOTE ---
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
--- NOTE | 2020-11-08 09:07 | PCM.POSTAN ---
POST ANESTHESIA ASSESSMENT - MENTAL STATUS Mental Status: Alert - VITAL SIGNS Vital Signs: Last Vital Signs Temp 36.4 C 11/08/20 08:52 Pulse 69 11/08/20 09:03 Resp 14 11/08/20 09:03 BP 129/89 11/08/20 09:03 Pulse Ox 96 11/08/20 09:03 - RESPIRATORY Respiratory Status: Respiratory Rate WNL - CARDIOVASCULAR CV Status: Pulse Rate WNL - GASTROINTESTINAL GI Status: No Symptoms - PAIN Pain Score: 0 - POST OP HYDRATION Hydration Status: Adequate & Stable - OBSERVATIONS Free Text/Narrative:: Doing well.
[2020-11-08] MEDS ORDERED: Glycopyrrolate 0.2 MG/ML SDV ONE ×2 (09:13→09:16)
--- NOTE | 2020-11-08 09:17 | PCM48HPAN ---
Post Anesthesia Note - EVALUATION WITHIN 48HRS OF ANESTHETIC Vital Signs in Normal Range: Yes Patient Participated in Evaluation: Yes Respiratory Function Stable: Yes Airway Patent: Yes Cardiovascular Function Stable: Yes Hydration Status Stable: Yes Pain Control Satisfactory: Yes Nausea and Vomiting Control Satisfactory: Yes Mental Status Recovered: Yes Vital Signs: Last Vital Signs Temp 36.4 C 11/08/20 08:52 Pulse 69 11/08/20 09:03 Resp 14 11/08/20 09:03 BP 129/89 11/08/20 09:03 Pulse Ox 96 11/08/20 09:03 - COMMENTS/OBSERVATIONS Free Text/Narrative:: The patient has no complaints at this time. There were no apparent anesthetic complications at this time. Discharge per criteria.
[2020-11-08] MEDS ORDERED: fentaNYL 100 MCG/2 ML SDV IVPUSH PRN (09:38)
[2020-11-08] MEDS ORDERED: 50% Dextrose in Water 50 ML Syringe IVPUSH PRN (09:38)
[2020-11-08] MEDS ORDERED: EPINEPHrine 1:10,000 1 MG/10 ML Syringe IVPUSH PRN (09:38)
[2020-11-08] MEDS ORDERED: Albuterol 0.083% 2.5 MG/3 ML Neb Soln NEB PRN (09:38)
[2020-11-08] MEDS ORDERED: Atropine 0.1 MG/ML 10 ML Syringe IVPUSH PRN ×2 (09:38)
[2020-11-08] MEDS ORDERED: Naloxone 0.4 MG/ML Syringe IVPUSH PRN (09:38)
--- NOTE | 2020-11-08 12:19 | OR ---
SURGEON: Dheeraj Payton MD DATE OF PROCEDURE: 11/08/2020 PREOPERATIVE DIAGNOSIS: Gastric mucosa intestinal metaplasia. POSTOPERATIVE DIAGNOSIS: Gastric mucosa intestinal metaplasia. PROCEDURE PERFORMED: Esophagogastroduodenoscopy with gastric mapping biopsy. DESCRIPTION OF PROCEDURE: EGD: The patient was taken to the endoscopy room, and with the GAMBLING MONITOR, Diprivan was administered. A well-lubricated EGD scope was gently inserted through the oropharynx, down the esophagus, passing through the gastroesophageal junction, into the stomach. The mucosa was examined upon the passage. Any etiology will be noted. Once in the stomach, we continued to advance to the distal antrum, passed through the pylorus into the second portion of the duodenum. Again, the mucosa was examined for any abnormality and etiology. The scope was then retrieved back to the stomach and then retroflexed to look at the fundus of the stomach. If a biopsy was indicated, we will biopsy the antrum, body, and gastroesophageal junction. The air will be sucked out while the scope is retrieved to reduce the patient's discomfort. The patient tolerated the procedure well. There were no intraoperative complications. Dr. Payton was present through the whole procedure. Prior to surgery, a time-out had been called, the patient identified, procedure identified and antibiotic administered. FINDINGS: 1. The patient is easily sedated with GAMBLING MONITOR and Diprivan, the patient is soundly snoring. 2. Oropharynx and proximal esophagus are free of disease, stricture, inflammation, or varicosity. Distal esophagus at GE junction at 40 shows mild salmon-colored change, suggests a little bit of acid reflux. Rugae are normal in appearance and there is no bile or food particle or blood observed. Antrum looks fine. Duodenum looks grossly normal. Retroflexed look at the fundus of stomach, there is no hiatal hernia. Biopsy done at antrum and cardiac incisura and body x2 and sucked out the gas while scope pulling out. RIP / BRAD /[id number]
== END 2020-11-08 09:25 | disposition home or self-care (01) ==
LOC: MW.SDS 07:29
PROVIDERS: ATTEND Surgery
DX: K31.89 Other diseases of stomach and duodenum (principal); I10 Essential (primary) hypertension; F17.210 Nicotine dependence, cigarettes, uncomplicated; K21.9 Gastro-esophageal reflux disease without esophagitis; E66.9 Obesity, unspecified; Z79.899 Other long term (current) drug therapy; Z98.890 Other specified postprocedural states; Z68.39 Body mass index [BMI] 39.0-39.9, adult
CPT/HCPCS: 43239; 81025; 88305; 88312; J2250; J2405; J2704; J3490; J7120; 00731; J3010

== ENCOUNTER 2021-02-24 10:02 | Emergency (ER) | payer MEDICAID ==
[2021-02-24] MEDS ORDERED: Dexamethasone 10 MG/ML SDV IM STA (10:15)
--- NOTE | 2021-02-24 10:20 | EDM.PDOC ---
ED HPI GENERAL MEDICAL PROBLEM - General Chief Complaint: Respiratory Problem Stated Complaint: throat pain Time Seen by Provider: 02/24/21 10:06 Source of Information: Reports: Patient History Limitations: Reports: No Limitations - History of Present Illness INITIAL COMMENTS - FREE TEXT/NARRATIVE: Is a 30-year-old female who presents today for throat pain. Patient she woke up this morning feeling of her throat was swollen as well as her tongue. Patient she is able to breathe and swallow without complaints. Patient denies any weakness to her body orrashes. Patient denies any known allergies. Patient denies any fever cough nausea vomiting or other complaint. - Related Data Allergies Allergy/AdvReac Type Severity Reaction Status Date / Time No Known Allergies Allergy Verified 02/24/21 10:06 Home Meds: Home Meds Omeprazole 20 mg PO DAILY 11/02/20 [History] Past Medical History HEENT History: Reports: Other (See Below) Other HEENT History: wears glasses Cardiovascular History: Reports: Other (See Below) Respiratory History: Reports: TB Other Respiratory History: hx of TB treated. 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: Musculoskeletal History: Reports: Fracture Other Musculoskeletal History: hx of fx arm Neurological History: Reports: Migraines Psychiatric History: Reports: None Endocrine/Metabolic History: Reports: Obesity/BMI 30+ Hematologic History: Reports: None Immunologic History: Reports: None Oncologic (Cancer) History: Reports: None Dermatologic History: Reports: None - Infectious Disease History Infectious Disease History: Reports: TB, Other (See Below) Other Infectious Disease History: 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-treated - Past Surgical History Head Surgeries/Procedures: Reports: None HEENT Surgical History: Reports: None Cardiovascular Surgical History: Reports: None Respiratory Surgical History: Reports: None GI Surgical History: Reports: Colonoscopy, EGD Female Surgical History: Reports: None Endocrine Surgical History: Reports: None Neurological Surgical History: Reports: None Musculoskeletal Surgical History: Reports: None Oncologic Surgical History: Reports: None Dermatological Surgical History: Reports: None - History Comment History Comment: etoh "2x a year" Social & Family History - Family History Family Medical History: No Pertinent Family History - Caffeine Use Caffeine Use: Reports: Coffee - Recreational Drug Use Recreational Drug Use: Yes Recreational Drug Type: Reports: Marijuana/Hashish ED ROS GENERAL - Review of Systems Review Of Systems: See Below Constitutional: Reports: No Symptoms HEENT: Reports: No Symptoms Respiratory: Reports: No Symptoms Cardiovascular: Reports: No Symptoms Endocrine: Reports: No Symptoms GI/Abdominal: Reports: No Symptoms : Reports: No Symptoms Musculoskeletal: Reports: No Symptoms Skin: Reports: No Symptoms, Rash Neurological: Reports: No Symptoms Psychiatric: Reports: No Symptoms Hematologic/Lymphatic: Reports: No Symptoms Immunologic: Reports: No Symptoms ED EXAM, GENERAL - Physical Exam Exam: See Below Exam Limited By: No Limitations General Appearance: Alert, WD/WN, No Apparent Distress Eye Exam: Bilateral Eye: EOMI, PERRL Throat/Mouth: Normal Inspection, Normal Teeth, No Airway Compromise Head: Atraumatic Respiratory/Chest: No Respiratory Distress, Lungs Clear, Normal Breath Sounds. No: Wheezing Cardiovascular: Normal Peripheral Pulses, Regular Rate, Rhythm GI/Abdominal: Normal Bowel Sounds, Soft, Non-Tender Extremities: Normal Inspection, Normal Range of Motion Neurological: Alert, Oriented, CN II-XII Intact, Normal Cognition Course - Vital Signs Last Recorded V/S: Last Vital Signs Temp 96.9 F 02/24/21 10:06 Pulse 98 02/24/21 10:06 Resp 20 02/24/21 10:06 BP 148/79 H 02/24/21 10:06 Pulse Ox 98 02/24/21 10:06 - Orders/Labs/Meds Labs: Laboratory Tests 02/24/21 Range/Units 10:18 Group A Strep (PCR) NOT DETECTED (NOT DETECT) Meds: Medications Discontinued Medications Generic Name Dose Route Start Last Admin Trade Name Freq PRN Reason Stop Dose Admin Dexamethasone 10 mg 02/24/21 10:15 02/24/21 10:20 Dexamethasone 10 Mg/Ml Sdv IM 02/24/21 10:16 10 mg NOW STA Administration - Re-Assessments/Exams Free Text/Narrative Re-Assessment/Exam: 02/24/21 11:05 Patient rapid strep is negative patient given Decadron feels slightly better will be discharged home to follow-up PMD. Departure - Departure Time of Disposition: 11:05 Disposition: Home, Self-Care 01 Condition: Good Clinical Impression: Pharyngitis - Discharge Information *PRESCRIPTION DRUG MONITORING PROGRAM REVIEWED*: Not Applicable *COPY OF PRESCRIPTION DRUG MONITORING REPORT IN PATIENT ERIK: Not Applicable Instructions: Pharyngitis, [id number] Forms: ED Department Discharge Additional Instructions: The following information is given to patients seen in the emergency department who are being discharged to home. This information is to outline your options for follow-up care. We provide all patients seen in our emergency department with a follow-up referral. The need for follow-up, as well as the timing and circumstances, are variable depending upon the specifics of your emergency department visit. If you don't have a primary care physician on staff, we will provide you with a referral. We always advise you to contact your personal physician following an emergency department visit to inform them of the circumstance of the visit and for follow-up with them and/or the need for any referrals to a consulting specialist. The emergency department will also refer you to a specialist when appropriate. This referral assures that you have the opportunity for follow-up care with a specialist. All of these measure are taken in an effort to provide you with optimal care, which includes your follow-up. Under all circumstances we always encourage you to contact your private physician who remains a resource for coordinating your care. When calling for follow-up care, please make the office aware that this follow-up is from your recent emergency room visit. If for any reason you are refused follow-up, please contact the [facility] Emergency De partment at and asked to speak to the emergency department charge nurse. Please follow up with your primary care physician. If you do not have a primary care physician, see below: [facility] [address] [place] [id number] My [facility] [address] [place] [id number] He was seen today for sore throat we did a rapid strep that came back negative for bacterial infection. We gave you some medication called Decadron to help out the swelling and pain in the meantime continue take Motrin Tylenol as needed for pain if the symptoms continue to worsen please return to the ED otherwise follow-up with primary care physician. Sepsis Event Note (ED) - Evaluation Sepsis Screening Result: No Definite Risk - Focused Exam Vital Signs: Vital Signs Temp Pulse Resp BP Pulse Ox 02/24/21 10:06 96.9 F 98 20 148/79 H 98 - Assessment/Plan Plan: Patient is having tonsillar swelling but really is not deviated lungs are clear no stridor no noticeable rashes. Likely pharyngitis will give Decadron and strep test and reassess.
== END 2021-02-24 11:18 | disposition home or self-care (01) ==
LOC: MW.ED 10:02
DX: J02.9 Acute pharyngitis, unspecified (principal); K21.9 Gastro-esophageal reflux disease without esophagitis; E66.9 Obesity, unspecified; Z68.41 Body mass index [BMI] 40.0-44.9, adult; Z79.899 Other long term (current) drug therapy
CPT/HCPCS: 87651; 96372; 99283; J1100

== ENCOUNTER 2021-06-09 10:11 | Emergency (ER) | payer MEDICAID ==
[2021-06-09] MEDS ORDERED: Ketorolac 30 MG/ML SDV IVPUSH ONE (11:37)
[2021-06-09] MEDS ORDERED: Sodium Chloride 0.9% 2.5 ML Syringe FLUSH PRN (11:37)
[2021-06-09] MEDS ORDERED: Sodium Chloride 0.9% 10 ML Syringe FLUSH PRN (11:37)
[2021-06-09] MEDS ORDERED: Sodium Chloride 0.9% 1,000 ML IV ONE (11:37)
[2021-06-09] MEDS ORDERED: Ondansetron 4 MG/2 ML SDV IVPUSH ONE (11:37)
--- NOTE | 2021-06-09 11:42 | EDM.PDOC ---
ED HPI GENERAL MEDICAL PROBLEM - General Chief Complaint: Gastrointestinal Problem Stated Complaint: ABDOMINAL PAIN Time Seen by Provider: 06/09/21 11:19 Source of Information: Reports: Patient History Limitations: Reports: No Limitations - History of Present Illness INITIAL COMMENTS - FREE TEXT/NARRATIVE: HISTORY AND PHYSICAL: History of present illness: Patient is a 30-year-old female who presents to the emergency room with complaints of right mid abdominal pain that started in the middle of the night. This morning she had one episode of nausea and vomiting. She states that her mucus was discolored with possible blood. The patient describes the pain as sharp stabbing and intermittent. She states that her previous abdominal pain had been gallbladder related and was much different. She has not taken any medications prior to arrival. She does not appreciate any modifiers. Patient denies any fever, chills, headache, change in vision, syncope or near syncope. D enies any chest pain, back pain, shortness of breath or cough. Denies any abdominal pain, nausea, vomiting, diarrhea, constipation or dysuria. Has not noted any blood in urine or stool. Patient has been eating and drinking appropriately. Review of systems: As per history of present illness and below otherwise all systems reviewed and negative. Past medical history: As per history of present illness and as reviewed below otherwise noncontributory. Surgical history: As per history of present illness and as reviewed below otherwise noncontributory. Social history: See social history for further information Family history: As per history of present illness and as reviewed below otherwise noncontributory. Physical exam: General: Well developed and well nourished. Alert and orientated x 3. Nontoxic in appearance and in no acute distress. Vital signs are stable and have been reviewed by me. Nursing notes were reviewed. HEENT: Atraumatic, normocephalic, pupils equal and reactive bilaterally, negative for conjunctival pallor or scleral icterus, mucous membranes moist, TMs normal bilaterally, throat clear, neck supple, nontender, trachea midline. No drooling or trismus noted. No meningeal signs. No hot potato voice noted. Lungs: Clear to auscultation bilaterally. No wheezes, rales, or rhonchi. Chest nontender. Normal work of breathing, no accessory muscles used. Heart: S1S2, regular rate and rhythm without overt murmur, gallops, or rubs. No JVD. No peripheral edema Abdomen: Soft, nondistended, RUQ tenderness. Negative Wilder sign. Normoactive bowel sounds. Negative for masses or costovertebral tenderness. Skin: Intact, warm, dry. No lesions or rashes noted. Hematologic: No petechiae or purpra. Mucosa appropriate color and normal nail bed color and refill. Extremities: Atraumatic, moves all extremities per self without difficulty or deficits, negative for cords or calf pain. Neurovascular unremarkable. Neuro: Awake, alert, oriented. Cranial nerves II through XII unremarkable. Cerebellum unremarkable. Motor and sensory unremarkable throughout. Exam nonfocal. Psychiatric: Mood and affect are appropriate. Normal thought process. Answering questions appropriately. Notes: *This patient was seen and evaluated during the 2019 SARS-CoV-2 novel coronavirus pandemic period. Community viral transmission is ongoing at time of this encounter and the emergency department is operating under pandemic response procedures. As stated above the patient is a 30-year-old female who presents with right upper quad pain that started in the middle of the night. The patient's exam was negative for Wilder sign. She is quite tender in the right upper quadrant. She is describing the pain as sharp and stabbing and intermittent. The patient is slightly nauseated. She has had gallbladder pain but states this is nothing like that. We will do an abdominal work-up to include abdomen/pelvis CT. We will obtain a urine hCG. The patient states her last menstrual period was 04/06/2021 and is irregular. She has no set cycle. Patient CBC is unremarkable. The patient's CMP is unremarkable except for an AST of 9. The patient's lipase is normal. Abdomen/pelvis CT IPRESSION: No acute findings or CT correlate for abdominal pain definitively identified. I discussed with the patient her results and at this moment she is pain-free. The patient states he feels much better. Patient states that she is currently seeing Dr. Trevino for management of her chronic abdominal pain. Patient states she will make a follow-up appointment with Dr. Trevino. I gave the patient detailed instructions on when she would need to return to the emergency department and the patient verbalized understanding. I have talked with the patient about today's findings, in addition to providing specific details for plan of care. Reassessment at the time of disposition demonstrates that the patient is in no acute distress. The patient is stable for discharge, counseling was provided and we discussed in great detail signs and symptoms that would prompt them to return to the Emergency Department. Medication, follow up and supportive care measures were reviewed and discussed. Voices understanding and is agreeable to plan of care. Denies any further questions or concerns at this time. Diagnostics: CBC, CMP, urinalysis, urine hCG, abdomen/pelvis CT Therapeutics: IV fluids, Toradol, and Zofran Impression: Abdominal pain Plan: 1. You were evaluated today on an emergent basis. Your abdominal pain was evaluated with blood work and a CT scan. Your blood work was normal. Your CAT scan was normal. As we talked about you need to follow-up with Dr. Trevino. If you have any changes in your condition please do not hesitate to return to the emergency department 2. You can alternate Tylenol and ibuprofen as needed for pain and fever management. 3. We encourage you to follow up with your primary care provider and/or recommended specialist in the next few days for re-evaluation and further care/management. 4. If your symptoms should worsen, new symptoms develop or any of the signs and symptoms we discussed should arise please return to the emergency room or call 911 (if needed). Definitive disposition and diagnosis as appropriate pending reevaluation and review of above. right upper abd Pain Score (Numeric/FACES): 7 - Related Data Allergies Allergy/AdvReac Type Severity Reaction Status Date / Time No Known Allergies Allergy Verified 06/09/21 11:25 Home Meds: Home Meds Omeprazole 20 mg PO DAILY 11/02/20 [History] Past Medical History HEENT History: Reports: Other (See Below) Other HEENT History: wears glasses Cardiovascular History: Reports: Other (See Below) Respiratory History: Reports: TB Other Respiratory History: hx of TB treated. 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: Musculoskeletal History: Reports: Fracture Other Musculoskeletal History: hx of fx arm Neurological History: Reports: Migraines Psychiatric History: Reports: None Endocrine/Metabolic History: Reports: Obesity/BMI 30+ Hematologic History: Reports: None Immunologic History: Reports: None Oncologic (Cancer) History: Reports: None Dermatologic History: Reports: None - Infectious Disease History Infectious Disease History: Reports: TB, Other (See Below) Other Infectious Disease History: 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-treated - Past Surgical History Head Surgeries/Procedures: Reports: None HEENT Surgical History: Reports: None Cardiovascular Surgical History: Reports: None Respiratory Surgical History: Reports: None GI Surgical History: Reports: Colonoscopy, EGD Female Surgical History: Reports: None Endocrine Surgical History: Reports: None Neurological Surgical History: Reports: None Musculoskeletal Surgical History: Reports: None Oncologic Surgical History: Reports: None Dermatological Surgical History: Reports: None - History Comment History Comment: etoh "2x a year" Social & Family History - Family History Family Medical History: No Pertinent Family History - Caffeine Use Caffeine Use: Reports: Coffee - Recreational Drug Use Recreational Drug Type: Reports: Marijuana/Hashish ED ROS GENERAL - Review of Systems Review Of Systems: Comprehensive ROS is negative, except as noted in HPI. ED EXAM, GI/ABD - Physical Exam Exam: See Below (See dictation) Course - Vital Signs Last Recorded V/S: Last Vital Signs Temp 97.4 F 06/09/21 11:25 Pulse 86 06/09/21 14:42 Resp 17 06/09/21 14:42 BP 115/61 06/09/21 14:42 Pulse Ox 98 06/09/21 14:42 - Orders/Labs/Meds Labs: Laboratory Tests 06/09/21 06/09/21 06/09/21 Range/Units 11:23 11:23 12:25 WBC 10.46 (4.0-11.0) K/uL RBC 4.81 (4.30-5.90) M/uL Hgb 13.8 (12.0-16.0) g/dL Hct 41.0 (36.0-46.0) % MCV 85.2 (80.0-98.0) fL MCH 28.7 (27.0-32.0) pg MCHC 33.7 (31.0-37.0) g/dL RDW Std Deviation 43.7 (28.0-62.0) fl RDW Coeff of Batool 14 (11.0-15.0) % Plt Count 294 (150-400) K/uL MPV 9.90 (7.40-12.00) fL Neut % (Auto) 55.7 (48.0-80.0) % Lymph % (Auto) 37.8 (16.0-40.0) % Gillespie % (Auto) 4.8 (0.0-15.0) % Eos % (Auto) 1.5 (0.0-7.0) % Baso % (Auto) 0.2 (0.0-1.5) % Neut # (Auto) 5.8 H (1.4-5.7) K/uL Lymph # (Auto) 4.0 H (0.6-2.4) K/uL Gillespie # (Auto) 0.5 (0.0-0.8) K/uL Eos # (Auto) 0.2 (0.0-0.7) K/uL Baso # (Auto) 0.0 (0.0-0.1) K/uL Nucleated RBC % 0.0 /100WBC Nucleated RBCs # 0 K/uL Sodium 141 (136-145) mmol/L Potassium 4.2 (3.5-5.1) mmol/L Chloride 104 (98-107) mmol/L Carbon Dioxide 26.8 (21.0-32.0) mmol/L BUN 15 (7.0-18.0) mg/dL Creatinine 0.7 (0.6-1.0) mg/dL Est Cr Clr Drug Dosing TNP Estimated GFR (MDRD) > 60.0 ml/min Glucose 106 (74-106) mg/dL Calcium 8.7 (8.5-10.1) mg/dL Total Bilirubin 0.3 (0.2-1.0) mg/dL AST 9 L (15-37) IU/L ALT 16 (14-63) IU/L Alkaline Phosphatase 84 (46-116) U/L Total Protein 7.3 (6.4-8.2) g/dL Albumin 3.7 (3.4-5.0) g/dL Globulin 3.6 (2.6-4.0) g/dL Albumin/Globulin Ratio 1.0 (0.9-1.6) Lipase 74 (73-393) U/L Urine Color YELLOW Urine Appearance CLEAR Urine pH 6.0 (5.0-8.0) Ur Specific [place] 1.020 (1.001-1.035) Urine Protein NEGATIVE (NEGATIVE) mg/dL Urine Glucose (UA) NEGATIVE (NEGATIVE) mg/dL Urine Ketones NEGATIVE (NEGATIVE) mg/dL Urine Occult Blood SMALL H (NEGATIVE) Urine Nitrite NEGATIVE (NEGATIVE) Urine Bilirubin NEGATIVE (NEGATIVE) Urine Urobilinogen 0.2 (<2.0) EU/dL Ur Leukocyte Esterase NEGATIVE (NEGATIVE) Urine RBC 0-3 (0-2/HPF) Urine WBC 0-1 (0-5/HPF) Ur Epithelial Cells MODERATE (NONE-FEW) Urine Bacteria FEW (NEGATIVE) Urine HCG, Qual (NEGATIVE) 06/09/21 Range/Units 12:25 WBC (4.0-11.0) K/uL RBC (4.30-5.90) M/uL Hgb (12.0-16.0) g/dL Hct (36.0-46.0) % MCV (80.0-98.0) fL MCH (27.0-32.0) pg MCHC (31.0-37.0) g/dL RDW Std Deviation (28.0-62.0) fl RDW Coeff of Batool (11.0-15.0) % Plt Count (150-400) K/uL MPV (7.40-12.00) fL Neut % (Auto) (48.0-80.0) % Lymph % (Auto) (16.0-40.0) % Gillespie % (Auto) (0.0-15.0) % Eos % (Auto) (0.0-7.0) % Baso % (Auto) (0.0-1.5) % Neut # (Auto) (1.4-5.7) K/uL Lymph # (Auto) (0.6-2.4) K/uL Gillespie # (Auto) (0.0-0.8) K/uL Eos # (Auto) (0.0-0.7) K/uL Baso # (Auto) (0.0-0.1) K/uL Nucleated RBC % /100WBC Nucleated RBCs # K/uL Sodium (136-145) mmol/L Potassium (3.5-5.1) mmol/L Chloride (98-107) mmol/L Carbon Dioxide (21.0-32.0) mmol/L BUN (7.0-18.0) mg/dL Creatinine (0.6-1.0) mg/dL Est Cr Clr Drug Dosing Estimated GFR (MDRD) ml/min Glucose (74-106) mg/dL Calcium (8.5-10.1) mg/dL Total Bilirubin (0.2-1.0) mg/dL AST (15-37) IU/L ALT (14-63) IU/L Alkaline Phosphatase (46-116) U/L Total Protein (6.4-8.2) g/dL Albumin (3.4-5.0) g/dL Globulin (2.6-4.0) g/dL Albumin/Globulin Ratio (0.9-1.6) Lipase (73-393) U/L Urine Color Urine Appearance Urine pH (5.0-8.0) Ur Specific [place] (1.001-1.035) Urine Protein (NEGATIVE) mg/dL Urine Glucose (UA) (NEGATIVE) mg/dL Urine Ketones (NEGATIVE) mg/dL Urine Occult Blood (NEGATIVE) Urine Nitrite (NEGATIVE) Urine Bilirubin (NEGATIVE) Urine Urobilinogen (<2.0) EU/dL Ur Leukocyte Esterase (NEGATIVE) Urine RBC (0-2/HPF) Urine WBC (0-5/HPF) Ur Epithelial Cells (NONE-FEW) Urine Bacteria (NEGATIVE) Urine HCG, Qual NEGATIVE (NEGATIVE) Meds: Medications Discontinued Medications Generic Name Dose Route Start Last Admin Trade Name Freq PRN Reason Stop Dose Admin Sodium Chloride 1,000 mls @ 999 mls/hr 06/09/21 11:37 06/09/21 11:42 Normal Saline IV 06/09/21 12:37 999 mls/hr BOLUS ONE Administration Iopamidol 100 ml 06/09/21 15:15 06/09/21 15:16 Iopamidol 755 Mg/Ml 500 Ml Multipack Bottle IVPUSH 06/09/21 15:16 100 ml ONETIME ONE Administration Ketorolac Tromethamine 30 mg 06/09/21 11:37 06/09/21 11:42 Ketorolac 30 Mg/Ml Sdv IVPUSH 06/09/21 11:38 30 mg ONETIME ONE Administration Ondansetron HCl 4 mg 06/09/21 11:37 06/09/21 11:42 Ondansetron 4 Mg/2 Ml Sdv IVPUSH 06/09/21 11:38 4 mg ONETIME ONE Administration Sodium Chloride 10 ml 06/09/21 11:37 06/09/21 11:43 Sodium Chloride 0.9% 10 Ml Syringe FLUSH 10 ml ASDIRECTED PRN Administration Keep Vein Open Sodium Chloride 2.5 ml 06/09/21 11:37 06/09/21 11:43 Sodium Chloride 0.9% 2.5 Ml Syringe FLUSH 2.5 ml ASDIRECTED PRN Administration Keep Vein Open Departure - Departure Time of Disposition: 14:33 Disposition: Home, Self-Care 01 Condition: Good Clinical Impression: Abdominal pain - Discharge Information *PRESCRIPTION DRUG MONITORING PROGRAM REVIEWED*: Not Applicable *COPY OF PRESCRIPTION DRUG MONITORING REPORT IN PATIENT ERIK: Not Applicable Instructions: Abdominal Pain, Adult, [id number] Referrals: Jeimy Lazaro PA [Primary Care Provider] - Forms: ED Department Discharge Additional Instructions: The following information is given to patients seen in the emergency department who are being discharged to home. This information is to outline your options for follow-up care. We provide all patients seen in our emergency department with a follow-up referral. The need for follow-up, as well as the timing and circumstances, are variable depending upon the specifics of your emergency department visit. If you don't have a primary care physician on staff, we will provide you with a referral. We always advise you to contact your personal physician following an emergency department visit to inform them of the circumstance of the visit and for follow-up with them and/or the need for any referrals to a consulting specialist. The emergency department will also refer you to a specialist when appropriate. This referral assures that you have the opportunity for follow-up care with a specialist. All of these measure are taken in an effort to provide you with optimal care, which includes your follow-up. Under all circumstances we always encourage you to contact your private physician who remains a resource for coordinating your care. When calling for follow-up care, please make the office aware that this follow-up is from your recent emergency room visit. If for any reason you are refused follow-up, please contact the [facility] Emergency Department at and asked to speak to the emergency department charge nurse. Meet [facility] - [facility] [address] [place] [address] [id number] [address] [id number] Plan: 1. You were evaluated today on an emergent basis. Your abdominal pain was evaluated with blood work and a CT scan. Your blood work was normal. Your CAT scan was normal. As we talked about you need to follow-up with Dr. Trevino. If you have any changes in your condition please do not hesitate to return to the emergency department 2. You can alternate Tylenol and ibuprofen as needed for pain and fever management. 3. We encourage you to follow up with your primary care provider and/or recommended specialist in the next few days for re-evaluation and further care/management. 4. If your symptoms should worsen, new symptoms develop or any of the signs and symptoms we discussed should arise please return to the emergency room or call 911 (if needed). Sepsis Event Note (ED) - Evaluation Sepsis Screening Result: No Definite Risk
[2021-06-09 11:56] LABS: BLOOD UREA NITROGEN,BUN 15 mg/dL (7.0-18.0); CARBON DIOXIDE,CO2 26.8 mmol/L (21.0-32.0); CHLORIDE,CL 104 mmol/L (98-107); GLUCOSE RANDOM 106 mg/dL (74-106); LIPASE 74 U/L (73-393); POTASSIUM,K 4.2 mmol/L (3.5-5.1); SODIUM,NA 141 mmol/L (136-145)
--- NOTE | 2021-06-09 12:33 | CT ---
INDICATION: Right upper abdominal pain. TECHNIQUE: CT abdomen and pelvis with intravenous contrast, 100 mL of Isovue-370. Coronal and sagittal reformats. COMPARISON: None available. FINDINGS: The imaged lower chest is unremarkable. Normal liver contour. Minimal focal fatty deposition along the falciform ligament. No suspicious hepatic lesion. The portal and hepatic veins are patent. The gallbladder, pancreas, spleen, and adrenals are unremarkable. Symmetric renal enhancement. Small right lower renal cyst. No hydronephrosis bilaterally. Decompressed urinary bladder. Anteverted uterus. The bowel appears normal in caliber and enhancement diffusely. Normal appendix. No free air, free fluid, focal collection, or lymphadenopathy. Normal caliber abdominal aorta. Major branch vessels are patent. No suspicious osseous lesion. IMPRESSION: No acute findings or CT correlate for abdominal pain definitively identified. Dictated by Vahid Valderrama MD @ 06/09/2021 12:32:18 PM Please note that all CT scans at this facility use dose modulation, iterative reconstruction, and/or weight-based dosing when appropriate to reduce radiation dose to as low as reasonably achievable. Dictated by: Vahid Valderrama MD @ 06/09/2021 12:32:23 (Electronically Signed)
[2021-06-09] MEDS ORDERED: Iopamidol 755 MG/ML 500 ML Multipack Bottle IVPUSH ONE (15:15)
== END 2021-06-09 14:42 | disposition home or self-care (01) ==
LOC: MW.ED 10:11
DX: R10.11 Right upper quadrant pain (principal); K21.9 Gastro-esophageal reflux disease without esophagitis; E66.9 Obesity, unspecified; Z79.899 Other long term (current) drug therapy
CPT/HCPCS: 36415; 74177; 80053; 81001; 81025; 83690; 85025; 96374; 96375; 99284; J1885; J2405; J7030; Q9967

== ENCOUNTER 2022-08-27 17:51 | Emergency (ER) | payer MEDICAID ==
[2022-08-27 20:17] LABS: CORONAVIRUS COVID-19 NAA NEGATIVE (NEGATIVE); INFLUENZA A NAA POSITIVE (NEGATIVE); INFLUENZA B NAA NEGATIVE (NEGATIVE)
== END 2022-08-27 20:56 | disposition home or self-care (01) ==
LOC: MW.ED 17:51
DX: J10.1 Influenza due to other identified influenza virus with other respiratory manifestations (principal); Z20.822 Contact with and (suspected) exposure to COVID-19
CPT/HCPCS: 0240U; 71046; 93005; 99284

== ENCOUNTER 2023-02-09 10:34 | Emergency (ER) | payer MEDICAID ==
[2023-02-09] MEDS ORDERED: Tetracaine HCl/PF 0.5% 4 ML Bottle EYEBOTH ONE (10:51)
[2023-02-09] MEDS ORDERED: Erythromycin Base 0.5% Ophth Oint 1 GM Tube EYERT ONE (11:28)
== END 2023-02-09 11:48 | disposition home or self-care (01) ==
LOC: MW.ED 10:34
DX: S05.01XA Injury of conjunctiva and corneal abrasion without foreign body, right eye, initial encounter (principal); E66.9 Obesity, unspecified; Z68.38 Body mass index [BMI] 38.0-38.9, adult; X58.XXXA Exposure to other specified factors, initial encounter
CPT/HCPCS: 99283; A9270; J3490